=== PATIENT | female | born 1940 ===

== ENCOUNTER 2019-01-31 09:51 | Outpatient (CLI) | payer MEDICARE, OTHER | END 2019-01-31 09:52 | disposition home or self-care (01) | LOC: C.MAMMO 09:51 ==

== ENCOUNTER 2019-03-01 09:07 | Outpatient (CLI) | payer MEDICARE, OTHER | END 2019-03-01 09:08 | disposition home or self-care (01) | LOC: C.SPRAD 09:07 ==